=== PATIENT | female | born 1990 | race Caucasian/White ===

== ENCOUNTER → 2017-07-23 | Outpatient (CLI) | payer OTHER ==
--- NOTE | 2017-07-23 11:26 | DIAGNOSTIC IMAGING REPORT ---
R TIBIA/FIBULA 2 VIEWS CLINICAL HISTORY: RIGHT LOWER LEG PAIN COMPARISON: None. DISCUSSION: No fractures or dislocations are visualized. There are no areas of pathologic periostitis. IMPRESSION: No fractures identified. Electronically signed by: Estrada Rizo M.D. 07/23/2017 11:25 AM Dictated Date/Time: 07/23/2017 11:24 AM
== END | disposition home or self-care (01) ==
LOC: C.RDSM 11:05
PROVIDERS: ATTEND Family Medicine
DX: M79.604 Pain in right leg (principal)